=== PATIENT | male | born 1935 | race Caucasian/White ===

== ENCOUNTER 2021-06-13 15:30 | Outpatient (CLI) | payer MEDICARE | END 2021-06-13 15:31 | disposition home or self-care (01) | LOC: CSHCT 15:30 | PROVIDERS: ATTEND Internal Medicine Cardiovascular Disease | DX: I50.9 Heart failure, unspecified (principal); R91.8 Other nonspecific abnormal finding of lung field; R06.00 Dyspnea, unspecified; J84.10 Pulmonary fibrosis, unspecified | CPT/HCPCS: 71250 ==

== ENCOUNTER 2021-10-22 13:28 | Outpatient (CLI) | payer MEDICARE | END 2021-10-22 13:29 | disposition home or self-care (01) | LOC: CSHCT 13:28 | PROVIDERS: ATTEND Internal Medicine Pulmonary Disease | DX: J84.9 Interstitial pulmonary disease, unspecified (principal); J84.10 Pulmonary fibrosis, unspecified; N62 Hypertrophy of breast | CPT/HCPCS: 71250 ==

== ENCOUNTER 2022-04-14 13:21 | Outpatient (CLI) | payer MEDICARE | END 2022-04-14 13:22 | disposition home or self-care (01) | LOC: CSHCT 13:21 | PROVIDERS: ATTEND Internal Medicine Pulmonary Disease | DX: R93.89 Abnormal findings on diagnostic imaging of other specified body structures (principal); R06.09 Other forms of dyspnea; R91.1 Solitary pulmonary nodule; R91.8 Other nonspecific abnormal finding of lung field; J84.10 Pulmonary fibrosis, unspecified | CPT/HCPCS: 71250 ==